=== PATIENT | female | born 1945 | race Caucasian/White ===

== ENCOUNTER 2019-07-25 12:15 | Inpatient (IN) | payer MEDICARE, OTHER ==
[~2019-07-25] VITALS: Ht 157.5 cm; Wt 109.8 kg
[2019-08-12] MEDS ORDERED: TRIAMTERENE-HC1 EAC3 PO (14:32)
[2019-08-12] MEDS ORDERED: TOPROL XL100 MG PO (14:33)
[2019-08-12] MEDS ORDERED: WELLBUTRIN SR150 MG PO (14:33)
[2019-08-12] MEDS ORDERED: ALEVE220 MG PO (14:34)
[2019-08-12] MEDS ORDERED: PRESERVISION PO (14:35)
[2019-08-13 11:43] LABS: BASOPHILS 0.4 % (0-2); EOSINOPHILS 2.4 % (0-7); HEMATOCRIT 47.8 % (36.0-48.0); HEMOGLOBIN 15.6 g/dL (12-16); IMMATURE GRANULOCYTES 0.3 % (0-5); LYMPHOCYTES 33.2 % (15-50); MCH 29.9 pg (26.0-34.0); MCHC 32.6 g/dL (31.0-37.0); MCV 91.6 fL (80.0-100.0); MEAN PLATELET VOLUME 10.5 fL (7.4-10.4); MONOCYTES 6.6 % (2-11); NEUTROPHILS 57.1 % (40-80); PLATELET COUNT 321 10x3/uL (130-400); RBC 5.22 10x6/uL (4.00-5.40); WBC 7.9 10x3/uL (4.8-10.8)
[2019-08-13 11:52] LABS: ANION GAP 11.3 mmol/L (8-16); APTT 31.4 SECONDS (22.8-39.4); CALCIUM 11.1 mg/dL (8.5-10.1); CARBON DIOXIDE 30.4 mmol/L (21.0-32.0); INR 0.93 (0.85-1.17); POTASSIUM - SERUM 3.7 mmol/L (3.5-5.1); PROTIME 12.4 SECONDS (11.6-15.0)
[2019-08-13 12:16] LABS: BACTERIA FEW /hpf (NEGATIVE); BILIRUBIN NEGATIVE (NEGATIVE); EPITHELIAL CELLS 0-5 /hpf (0-5); GLUCOSE NEGATIVE (NEGATIVE); KETONE NEGATIVE (NEGATIVE); NITRITE NEGATIVE (NEGATIVE); RED CELLS - URINE RARE /hpf (0-5); SPECIFIC GRAVITY 1.015 (1.005-1.020)
--- NOTE | 2019-08-13 14:22 | NUR ---
1415-UA RESULTS CALLED TO [facility] WITH DR FUNG.
[2019-08-19] VITALS (10 sets, daily range): BP systolic 116–165; BP diastolic 52–99; BMI 44.4
[2019-08-19] MEDS ORDERED: CIPRO500 MG PO (05:56)
--- NOTE | 2019-08-19 10:35 | NUR ---
RECEIVED TO ROOM 1208 VIA BED FROM PACU. IN ROOM. A/O X3. SKIN INTACT WTIHOUT REDNESS EXCEPT INCISION TO RIGHT HIP WHICH HAS A DRY INTACT DRESSING IN PLACE. C/O PAIN TO RIGHT HIP
--- NOTE | 2019-08-19 10:42 | OP ---
PATIENT NAME: ISABELLE STEPHENS MEDICAL RECORD: [id number] :47 LOCATION:D. D.1208 ADMISSION DATE:08/19/19 SURGEON: TOMMY FUNG DO DATE OF OPERATION: 08/19/2019 PROCEDURE PERFORMED: Right total hip arthroplasty. PREOPERATIVE DIAGNOSIS: Right hip osteoarthritis. POSTOPERATIVE DIAGNOSIS: Right hip osteoarthritis. INDICATIONS: Ms. Stephens is a 74-year-old female, who has had right hip pain for quite some time. She is tired of dealing with the pain and affecting her activities of daily living. She has tried all manner of nonoperative treatment to no avail. She wants something done surgically, and she was aware of the risks of the procedure including infection, bleeding, damage to nerves and vessels, failure of implant, fracture, blood clots, and even . She is aware she is a higher risk due to her BMI and she is willing to take that risk and sign the consent. SURGEON: Tommy Fung DO DESCRIPTION OF PROCEDURE: The patient was taken to the operative suite. I was assisted by Maximino Peters, certified medication technician. He assisted with retraction and closing. Once she was taken to the operative suite and laid in supine position, given a general anesthetic and intubated. She was given 2 grams of Ancef and 80 mg of gentamicin and a gram of TXA prior to starting. She was then positioned on the [place] table. The right hip was then prepped and draped in sterile fashion and then I reprepped before putting the final drape on with chlorhexidine. Then, a timeout was performed. Everyone was in agreement with the correct side, site, procedure, and the patient, and antibiotics were verified. I then made an incision over the tensor fascia marcelo muscle and careful dissection was made down to the muscle and the fascia was taken anteriorly and the muscle belly posteriorly. The rectus interval was then opened and the rectus was taken medially and the tensor fascia marcelo laterally. Once I was opened up, the ascending branch of the lateral femoral circumflex artery was encountered, tied off and coagulated with the Aquamantys. I then went down to the capsule. The capsule was opened up and the Hohmanns were placed inside the capsule. The neck was then cut and the neck and head were removed. I then removed the labrum and did releases on the ischiofemoral ligament as well as the posterior capsule as she was very tight. I then began reaming, reamed up to 50 cup. The 50 cup was then impacted in very good position. The liner was then put in. The femur was then exposed, and a cookie cutter and canal finder were used and then broached up to an 11. The 11 was sized and reduced with a -6 neck. This fit very well. Once we dislocated that the 11 stem was a little loose, so we put a 12 broach down and put a 12 stem down. This fit very well. The -6 neck was then put on with the high offset. This was reduced and confirmed to be in good position on x-ray and equal lengths to the left side. No fracture was seen in the femur. We then tested the internal and external rotation and it rotated very well with most of motion from the small ball, not the big ball. We then irrigated the site with 10% povidone-iodine with 500 mL of normal saline solution, set for 3 minutes. This was irrigated out with more than a liter of normal saline. Then put in Dinah powder as well as vancomycin and tobramycin powder and then closed the tensor fascia marcelo fascia with #1 Vicryl, first in [id number] and then a running OPERATIVE REPORT [id number] ISABELLE STEPHENS locking stitch. The skin was then closed by Maximino Peters, certified surgical captain's assistant. He closed with 2-0 Vicryl in an inverted interrupted fashion, 4-0 Monocryl ran on the skin and then put a Prevena plus wound incisional VAC on it due to her skin fold being right at the incision site protecting that repair. Plan to be on it for 2 weeks. She was then awakened and taken to recovery in stable condition. Blood loss was approximately 200 mL. COMPLICATIONS: None. TRANSINT:[id number] Voice Confirmation ID: [id number] DOCUMENT ID: [id number] TOMMY FUNG DO at 1042 CC: [id number] DICTATION DATE: 08/19/19920 RECRUITMENT ASSISTANT: 08/19/19 0950 ADM IN [facility] [address] [place] [address]
--- NOTE | 2019-08-19 10:50 | NUR ---
C/O INTENSE PAIN TO RIGHT HIP. REQUESTED AND GIVEN ON HYDROCODONE PO FOR LEVEL 8. WILL MONITOR
[2019-08-19 11:15] LABS: ALBUMIN 3.4 g/dL (3.4-5.0); ANION GAP 11.7 mmol/L (8-16); BILIRUBIN - TOTAL 0.52 mg/dL (0.2-1.3); CALCIUM 10.1 mg/dL (8.5-10.1); CARBON DIOXIDE 26.7 mmol/L (21.0-32.0); CREATININE - SERUM 1.1 mg/dL (0.6-1.3); POTASSIUM - SERUM 3.4 mmol/L (3.5-5.1); PROTEIN - SERUM 6.4 g/dL (6.4-8.2)
[2019-08-19 11:36] LABS: BASOPHILS 0.2 % (0-2); EOSINOPHILS 0.3 % (0-7); HEMOGLOBIN 13.5 g/dL (12-16); IMMATURE GRANULOCYTES 0.3 % (0-5); LYMPHOCYTES 8.2 % (15-50); MCH 29.9 pg (26.0-34.0); MCHC 32.1 g/dL (31.0-37.0); MCV 92.9 fL (80.0-100.0); MEAN PLATELET VOLUME 10.4 fL (7.4-10.4); MONOCYTES 2.7 % (2-11); NEUTROPHILS 88.3 % (40-80); PLATELET COUNT 289 10x3/uL (130-400); RBC 4.52 10x6/uL (4.00-5.40); RDW 12.9 % (11.5-14.5); WBC 17.6 10x3/uL (4.8-10.8)
--- NOTE | 2019-08-19 19:20 | NUR ---
ATE MOST OF DINNER TRAY. ASSISTED UP TO BSC WITH 2 PERSON MIN ASSIST. UNABLE TO VOID AT THIS TIME. REPOSITIONED IN BED FOR COMFORT. DENIES NEEDS.
--- NOTE | 2019-08-19 19:30 | NUR ---
LYING IN BED. UNABLE TO VOID AFTER GETTING UP TO BSC. WILL CONT TO MONITOR. DENIES PAIN. RESP EVEN AND NONLABORED. ALERT AND ORIENTED X4. DAVID HOSE AND SCD IN USE BILAT. WOUND VAC NOTED TO RT HIP WITH SCANT AMOUNT OF BLOODY FLUID NOTED. 1/2 NS @ 50 MLHR INFUSING IN LT HAND. AMBAR ALARM ON FOR PT SAFETY. SR ELEVATED X2. PEDAL PULSES STRONG BILAT. CL IN REACH. NO DISTRESS.
--- NOTE | 2019-08-19 21:00 | NUR ---
LYING IN BED. DENIES PAIN. AT BEDSIDE. CL IN REACH.
--- NOTE | 2019-08-20 00:06 | NUR ---
UNABLE TO VOID AFTER ATTEMPT X2 ON BSC. STATES SHE FEELS LIKE IT IS "RIGHT THERE AND WONT COME OUT". I/O CATH PERFORMED WITH IMMEDIATE RETURN OF CLEAR YELLOW URINE. SPECIMEN COLLECTED AND TAKEN TO LAB. PT BRUCE WELL. 600 ML OUT.
[2019-08-20 00:31] VITALS: BP 134/55
--- NOTE | 2019-08-20 03:03 | NUR ---
LYING IN BED WITH EYES CLOSED. RESP EVEN AND NONLABORED. NO DISTRESS. AMBAR ALARM ON. CL IN REACH. AT BEDSIDE.
[2019-08-20 04:26] VITALS: BP 116/50
--- NOTE | 2019-08-20 05:42 | NUR ---
LYING IN BED DRINKING COFFEE WITH SPOUSE AT BEDSIDE. DENIES PAIN. DENIES NEED TO VOID OR DISTENTION. CL IN REACH. NO DISTRESS.
[2019-08-20 06:12] LABS: BASOPHILS 0.1 % (0-2); EOSINOPHILS 0.1 % (0-7); HEMATOCRIT 38.6 % (36.0-48.0); HEMOGLOBIN 12.2 g/dL (12-16); IMMATURE GRANULOCYTES 0.2 % (0-5); LYMPHOCYTES 16.9 % (15-50); MCHC 31.6 g/dL (31.0-37.0); MCV 91.7 fL (80.0-100.0); MEAN PLATELET VOLUME 10.6 fL (7.4-10.4); MONOCYTES 12.9 % (2-11); NEUTROPHILS 69.8 % (40-80); PLATELET COUNT 289 10x3/uL (130-400); RBC 4.21 10x6/uL (4.00-5.40)
[2019-08-20 06:36] LABS: ANION GAP 10.9 mmol/L (8-16); BILIRUBIN - TOTAL 0.68 mg/dL (0.2-1.3); CALCIUM 9.6 mg/dL (8.5-10.1); CARBON DIOXIDE 27.8 mmol/L (21.0-32.0); POTASSIUM - SERUM 3.7 mmol/L (3.5-5.1); PROTEIN - SERUM 5.8 g/dL (6.4-8.2)
[2019-08-20 09:13] LABS: BILIRUBIN NEGATIVE (NEGATIVE); GLUCOSE 50 mg/dL (NEGATIVE); KETONE SMALL mg/dL (NEGATIVE); NITRITE NEGATIVE (NEGATIVE); SPECIFIC GRAVITY 1.015 (1.005-1.020); UROBILINOGEN NORMAL (NORMAL)
[2019-08-20 09:22] VITALS: Ht 157.5 cm; Wt 109.8 kg
[2019-08-20 09:31] VITALS: BP 114/51
--- NOTE | 2019-08-20 09:41 | NUR ---
PT ALERT X 4. BREATH SOUNDS DIMINISHED TO LOWER LOBES, ENCOURAGED TO COUGH AND USE INCENTIVE SPIROMETER. IV TO LEFT HAND, PATENT DRESSING CDI. WOUND VAC TO RIGHT HIP. SCD'S IN USE. PT REPORTING PAIN OF 7/10, MEDICATED PER ORDERS, WILL MONITOR. UP WITH PHYSICAL THERAPY. BED LOW, CALL LIGHT IN REACH. NO OTHER NEEDS AT THIS TIME.
--- NOTE | 2019-08-20 19:24 | NUR ---
PATIENT RESTING IN BED WITH GUEST AT BEDSIDE. ASSISTED PATIENT TO BSC PER HER REQUEST. PATIENT DENIES OTHER NEEDS AT THIS TIME. DAVID HOSE, SCD'S, AND NON-SLIP SOCKS PLACED ON PATIENT. BED IN LOWEST POSITION AND CALL LIGHT WITHIN REACH. ENCOURAGED THE PATIENT TO CALL IF SHE HAS NEEDS. WILL CONTINUE TO MONITOR.
--- NOTE | 2019-08-20 19:30 | NUR ---
PATIENT REFUSED BATH TONIGHT
[2019-08-20 20:25] VITALS: BP 118/50
--- NOTE | 2019-08-20 22:33 | MORECARE ---
CASE MANAGEMENT DISCHARGE SUMMARY PATIENT: ISABELLE DOVER UNIT: [id number] ADM DATE: 08/19/19 AGE: 74 : 46 SEX: F ROOM/BED: D.1208 AUTHOR: SANDRITA MONROE PHYSICIAN: REFERRING PHYSICIAN: MARLENY FUNG DO DATE OF SERVICE: 08/20/19 Discharge Plan Patient Name: ISABELLE DOVER Facility: [facility]:[place] : 1945 Planned Disposition: Home Anticipated Discharge Date: Discharge Date: Expected LOS: Initial Reviewer: [email or web address] Initial Review Date: 08/20/2019 Generated: 08/20/19 11:33 pm Patient Name: ISABELLE DOVER Page 24292 at 6313 All edits/amendments must be made on the electronic document DICTATION DATE: 08/20/192232 FIG BAR MACHINE OPERATOR: BARBARA 08/20/192232 RPT#: [id number] DC DATE: STATUS: ADM IN [facility] [address] [place] [address] END OF REPORT
--- NOTE | 2019-08-20 22:40 | MORECARE ---
CASE MANAGEMENT DISCHARGE SUMMARY PATIENT: ISABELLE STEPHENS UNIT: [id number] ADM DATE: 08/19/19 AGE: 74 : 46 SEX: F ROOM/BED: D.1208 AUTHOR: SANDRITA MONROE PHYSICIAN: REFERRING PHYSICIAN: MARLENY FUNG DO DATE OF SERVICE: 08/20/19 Discharge Plan Patient Name: ISABELLE STEPHENS [facility] : 1945 Planned Disposition: Home Anticipated Discharge Date: Discharge Date: Expected LOS: Initial Reviewer: [email or web address] Initial Review Date: 08/20/2019 Generated: 08/20/19 11:40 pm DCPIA - Discharge Planning Initial Assessment Updated by [email or web address]: Laura Person on 08/20/19 10:34 pm * Is the patient Alert and Oriented? Yes * How many steps to enter\exit or inside your home? * PCP Te[facility] Jr * [facility] * Preadmission Environment Home with Family * ADLs Independent * Equipment None * List name and contact numbers for known caregivers / representatives who currently or will assist patient after discharge: Preston Stephens -[phone] * Verbal permission to speak to the caregivers and representatives has been obtained from the patient. Yes * Community resources currently utilized None * Additional services required to return to the preadmission environment? No * Can the patient safely return to the preadmission environment? Yes * Has this patient been hospitalized within the prior 30 days at any hospital? No Last DP export: 08/20/19 9:33 p Patient Name: ISABELLE STEPHENS Page 86501 at 2240 All edits/amendments must be made on the electronic document DICTATION DATE: 08/20/192239 FREELANCE WEB DESIGNER: BARBARA 08/20/192239 RPT#: [id number] DC DATE: STATUS: ADM IN [facility] [address] [place] [address] END OF REPORT
--- NOTE | 2019-08-20 22:47 | MORECARE ---
CASE MANAGEMENT DISCHARGE SUMMARY PATIENT: ISABELLE STEPHENS UNIT: [id number] ADM DATE: 08/19/19 AGE: 74 : 46 SEX: F ROOM/BED: D.1208 AUTHOR: SANDRITA MONROE PHYSICIAN: REFERRING PHYSICIAN: MARLENY FUNG DO DATE OF SERVICE: 08/20/19 Discharge Plan Patient Name: ISABELLE STEPHENS Facility: [facility]:[place] : 1945 Planned Disposition: Home Anticipated Discharge Date: Discharge Date: Expected LOS: Initial Reviewer: [email or web address] Initial Review Date: 08/20/2019 Generated: 08/20/19 11:46 pm Comments DCP- Discharge Planning Updated by [email or web address]: Laura Person on 08/20/19 9:[address] Patient Name: ISABELLE STEPHENS Admission Status: Elective Accout number: [id number] Admission Date: 08-19-2019 : 1945 Admission Diagnosis: Attending: MARLENY FUNG Current LOS: 1 Anticipated DC Date: Planned Disposition: Home Primary Insurance: MEDICARE A & B Discharge Planning Comments: CM met with patient to complete initial dc planning assessment. CM educated patient on the CM role and verbal consent given by patient to complete assessment. Patient lives at home with her where she is independent with her care. At discharge patient plans to return home and feels this is a safe discharge. CM discussed availability of home health, rehab services, and medical equipment. Patient states that [facility] is suppose to bring her a walker but she need a BSC that is wide. Patient also states that she will need d/t having a wound vac. RANJAN signed for [facility] [phone] fax [phone]. CM contacted [facility] and [facility] stated they would accept patient when discharged just fax referral upon discharge. [facility] and will fax order. Patient denied known discharge needs at this time. CM will continue to follow and will assist as needed with dc plans/needs. Clothing And Textiles Teacher: Laura Person DCPIA - Discharge Planning Initial Assessment Updated by [email or web address]: Laura Person on 08/20/19 10:34 pm * Is the patient Alert and Oriented? Yes * How many steps to enter\exit or inside your home? * PCP [facility] Jr * [facility] * Preadmission Environment Home with Family * ADLs Independent * Equipment None * List name and contact numbers for known caregivers / representatives who currently or will assist patient after discharge: Preston Stephens -[phone] * Verbal permission to speak to the caregivers and representatives has been obtained from the patient. Yes * Community resources currently utilized None * Additional services required to return to the preadmission environment? No * Can the patient safely return to the preadmission environment? Yes * Has this patient been hospitalized within the prior 30 days at any hospital? No Last DP export: 08/20/19 9:40 p Patient Name: ISABELLE STEPHENS Page 25161 at 2247 All edits/amendments must be made on the electronic document DICTATION DATE: 08/20/192245 GEAR CUTTER: BARBARA 08/20/192245 RPT#: [id number] DC DATE: STATUS: ADM IN [facility] [address] [place] [address] END OF REPORT
--- NOTE | 2019-08-20 22:59 | MORECARE ---
CASE MANAGEMENT DISCHARGE SUMMARY PATIENT: ISABELLE STEPHENS UNIT: [id number] ADM DATE: 08/19/19 AGE: 74 : 46 SEX: F ROOM/BED: D.1208 AUTHOR: SANDRITA MONROE PHYSICIAN: REFERRING PHYSICIAN: MARLENY FUNG DO DATE OF SERVICE: 08/20/19 Discharge Plan Patient Name: ISABELLE STEPHENS Facility: [facility]:[place] : 1945 Planned Disposition: Home Anticipated Discharge Date: Discharge Date: Expected LOS: Initial Reviewer: [email or web address] Initial Review Date: 08/20/2019 Generated: 08/20/19 11:59 pm Comments DCP- Discharge Planning Updated by [email or web address]: Laura Person on 08/20/19 9:[address] Patient Name: ISABELLE STEPHENS Admission Status: Elective Accout number: [id number] Admission Date: 08-19-2019 : 1945 Admission Diagnosis: Attending: MARLENY FUNG Current LOS: 1 Anticipated DC Date: Planned Disposition: Home Primary Insurance: MEDICARE A & B Discharge Planning Comments: CM met with patient to complete initial dc planning assessment. CM educated patient on the CM role and verbal consent given by patient to complete assessment. Patient lives at home with her where she is independent with her care. At discharge patient plans to return home and feels this is a safe discharge. CM discussed availability of home health, rehab services, and medical equipment. Patient states that [facility] is suppose to bring her a walker but she need a BSC that is wide. Patient also states that she will need d/t having a wound vac. RANJAN signed for [facility] [phone] fax [phone]. CM contacted [facility] and Carlos stated they would accept patient when discharged just fax referral upon discharge. CM [facility] and will fax order. Patient denied known discharge needs at this time. CM will continue to follow and will assist as needed with dc plans/needs. C Software Engineer: Laura Person DCPIA - Discharge Planning Initial Assessment Updated by [email or web address]: Laura Person on 08/20/19 10:34 pm * Is the patient Alert and Oriented? Yes * How many steps to enter\exit or inside your home? * PCP [facility] Jr * [facility] * Preadmission Environment Home with Family * ADLs Independent * Equipment None * List name and contact numbers for known caregivers / representatives who currently or will assist patient after discharge: Preston Stephens -[phone] * Verbal permission to speak to the caregivers and representatives has been obtained from the patient. Yes * Community resources currently utilized None * Additional services required to return to the preadmission environment? No * Can the patient safely return to the preadmission environment? Yes * Has this patient been hospitalized within the prior 30 days at any hospital? No External Providers [facility] Next Contact Date: Service Request Date: Service Type: Resolution: Reviewer: Comments: Last DP export: 08/20/19 9:47 p Patient Name: ISABELLE STEPHENS Page 49347 at 9557 All edits/amendments must be made on the electronic document DICTATION DATE: 08/20/192258 PATTERN MAKER PROGRAMER: BARBARA 08/20/192258 RPT#: [id number] DC DATE: STATUS: ADM IN [facility] [address] [place] [address] END OF REPORT
[2019-08-21] VITALS (7 sets, daily range): BP systolic 121–156; BP diastolic 52–71
[2019-08-21 05:28] LABS: BASOPHILS 0.2 % (0-2); EOSINOPHILS 0.7 % (0-7); HEMATOCRIT 39.4 % (36.0-48.0); HEMOGLOBIN 12.6 g/dL (12-16); IMMATURE GRANULOCYTES 0.2 % (0-5); LYMPHOCYTES 12.4 % (15-50); MCH 29.4 pg (26.0-34.0); MCV 91.8 fL (80.0-100.0); MEAN PLATELET VOLUME 10.4 fL (7.4-10.4); MONOCYTES 10.7 % (2-11); NEUTROPHILS 75.8 % (40-80); PLATELET COUNT 301 10x3/uL (130-400); RBC 4.29 10x6/uL (4.00-5.40); RDW 13.3 % (11.5-14.5)
[2019-08-21 05:46] LABS: ALBUMIN 3.2 g/dL (3.4-5.0); ANION GAP 12.5 mmol/L (8-16); BILIRUBIN - TOTAL 0.64 mg/dL (0.2-1.3); CALCIUM 10.2 mg/dL (8.5-10.1); CARBON DIOXIDE 28.1 mmol/L (21.0-32.0); POTASSIUM - SERUM 3.6 mmol/L (3.5-5.1); PROTEIN - SERUM 6.4 g/dL (6.4-8.2)
--- NOTE | 2019-08-21 07:06 | NUR ---
PT IS RESTING IN BEDSIDE CHAIR. RESPIRATIONS ARE EVEN AND UNLABORED. PT IS AAO X 4. SCDS ARE ON BLE. WOUND VAC NOTED TO RIGHT HIP. DRESSING INTACT. PT DENIES PRESENCE OF NUMBNESS/TINGLING TO BUE AND BLE. BILATERAL PEDAL PULSES PALP AND CAP REFILL IS < 3. IS AT BEDSIDE. PT DENIES PRESENCE OF PAIN TO HIP BUT REPORTS ABDOMINAL DISCOMFORT AND STATES "I NEED TO HAVE A BM". BS HYPOACTIVE X 4. PT DENIES PRESENCE OF N/V AND STATES THAT SHE HAS PASSED GAS "BUT NOT A LOT". INCENTIVE SPIROMETER AT BEDSIDE. PT EDUCATED ON USE AND IMPORTANCE OF USE FOR INCENTIVE SPIROMETER. PT VERBALIZES UNDERSTANDING. BED IS IN THE LOWEST POSITION. CALL LIGHT AND BEDSIDE TABLE ARE WITHIN REACH. SIDE RAILS X 2. WALKER IN REACH. PT AND PT SPOUSE DENY FURTHER NEEDS. WILL CONT TO MONITOR.
--- NOTE | 2019-08-21 08:52 | NUR ---
PT REPORTS LARGE BM AND STATES THAT SHE FEELS "BETTER".
--- NOTE | 2019-08-21 16:46 | NUR ---
PT CALLS NURSE TO ROOM AND STAES "I FEEL LIKE I MIGHT HAVE A LITTLE FEVER". PT TEMPORAL TEMPERATURE IS 99.6. BLANKETS REMOVED AND PT ENCOURAGED TO USE INCENTIVE SPIROMETER. PT DENIES PRESENCE OF PAIN/N/V/DYSPNEA/SOB AT THIS TIME. WOUND VAC TO RIGHT HIP INTACT AND ON AND WORKING. IS AT BEDSIDE. BED IS IN THE LOWEST POSITION. CALL LIGHT AND BEDSIDE TABLE ARE WITHIN REACH. SIDE RAILS X 2. PT DENIES FURTHER NEEDS. WILL CONT TO MONITOR.
--- NOTE | 2019-08-21 17:39 | MORECARE ---
CASE MANAGEMENT DISCHARGE SUMMARY PATIENT: ISABELLE STEPHENS UNIT: [id number] ADM DATE: 08/19/19 AGE: 74 : 46 SEX: F ROOM/BED: D.1208 AUTHOR: SANDRITA MONROE PHYSICIAN: REFERRING PHYSICIAN: MARLENY FUNG DO DATE OF SERVICE: 08/21/19 Discharge Plan Patient Name: ISABELLE STEPHENS Facility: [facility]:[place] : 1945 Planned Disposition: Home Anticipated Discharge Date: Discharge Date: Expected LOS: Initial Reviewer: [email or web address] Initial Review Date: 08/20/2019 Generated: 08/21/19 6:39 pm Comments DCP- Discharge Planning Updated by [email or web address]: Laura Person on 08/20/19 9:[address] Patient Name: ISABELLE STEPHENS Admission Status: Elective Accout number: [id number] Admission Date: 08-19-2019 : 1945 Admission Diagnosis: Attending: MARLENY FUNG Current LOS: 1 Anticipated DC Date: Planned Disposition: Home Primary Insurance: MEDICARE A & B Discharge Planning Comments: CM met with patient to complete initial dc planning assessment. CM educated patient on the CM role and verbal consent given by patient to complete assessment. Patient lives at home with her where she is independent with her care. At discharge patient plans to return home and feels this is a safe discharge. CM discussed availability of home health, rehab services, and medical equipment. Patient states that [facility] is suppose to bring her a walker but she need a BSC that is wide. Patient also states that she will need d/t having a wound vac. RANJAN signed for [facility] [phone] fax [phone]. CM contacted [facility] and Carlos stated they would accept patient when discharged just fax referral upon discharge. [facility] and will fax order. Patient denied known discharge needs at this time. CM will continue to follow and will assist as needed with dc plans/needs. Batteryman: Laura Person DCPIA - Discharge Planning Initial Assessment Updated by [email or web address]: Laura Person on 08/20/19 10:34 pm * Is the patient Alert and Oriented? Yes * How many steps to enter\exit or inside your home? * PCP [facility] Jr * [facility] * Preadmission Environment Home with Family * ADLs Independent * Equipment None * List name and contact numbers for known caregivers / representatives who currently or will assist patient after discharge: Preston Stephens -[phone] * Verbal permission to speak to the caregivers and representatives has been obtained from the patient. Yes * Community resources currently utilized None * Additional services required to return to the preadmission environment? No * Can the patient safely return to the preadmission environment? Yes * Has this patient been hospitalized within the prior 30 days at any hospital? No External Providers External Provider: OTHER-OTHER Next Contact Date: Service Request Date: Service Type: Resolution: Reviewer: Comments: Last DP export: 08/20/19 9:59 p Patient Name: ISABELLE STEPHENS Page 72973 at 1739 All edits/amendments must be made on the electronic document DICTATION DATE: 08/21/191738 ORDER PULLER: BARBARA 08/21/191738 RPT#: [id number] DC DATE: STATUS: ADM IN [facility] [address] [place] [address] END OF REPORT
--- NOTE | 2019-08-21 17:47 | MORECARE ---
CASE MANAGEMENT DISCHARGE SUMMARY PATIENT: ISABELLE STEPHENS UNIT: [id number] ADM DATE: 08/19/19 AGE: 74 : 46 SEX: F ROOM/BED: D.1208 AUTHOR: FER,DOC PHYSICIAN: REFERRING PHYSICIAN: MARLENY FUNG DO DATE OF SERVICE: 08/21/19 Discharge Plan Patient Name: ISABELLE STEPHENS Facility: [facility]:[place] : 1945 Planned Disposition: Home Anticipated Discharge Date: Discharge Date: Expected LOS: Initial Reviewer: [email or web address] Initial Review Date: 08/20/2019 Generated: 08/21/19 6:47 pm Comments DCP- Discharge Planning Updated by [email or web address]: Laura Person on 08/21/19 4:[address] CM faxed records to [facility]. CM has no current order for home health or plan for wound vac. CM will continue to follow and assist as needed with discharge planning / needs. DCP- Discharge Planning Updated by [email or web address]: Laura Person on 08/20/19 9:[address] Patient Name: ISABELLE STEPHENS Admission Status: Elective Accout number: [id number] Admission Date: 08-19-2019 : 1945 Admission Diagnosis: Attending: MARLENY FUNG Current LOS: 1 Anticipated DC Date: Planned Disposition: Home Primary Insurance: MEDICARE A & B Discharge Planning Comments: CM met with patient to complete initial dc planning assessment. CM educated patient on the CM role and verbal consent given by patient to complete assessment. Patient lives at home with her where she is independent with her care. At discharge patient plans to return home and feels this is a safe discharge. CM discussed availability of home health, rehab services, and medical equipment. Patient states that [facility] is suppose to bring her a walker but she need a BSC that is wide. Patient also states that she will need HH d/t having a wound vac. RANJAN signed for [facility] [phone] fax [phone]. CM contacted [facility] and Carlos stated they would accept patient when discharged just fax referral upon discharge. CM contacted [facility] regarding BSC and will fax order. Patient denied known discharge needs at this time. CM will continue to follow and will assist as needed with dc plans/needs. Shake Backboard Notcher: Laura Person DCPIA - Discharge Planning Initial Assessment Updated by [id number]: Laura Person on 08/20/19 10:34 pm * Is the patient Alert and Oriented? Yes * How many steps to enter\exit or inside your home? * PCP Te[facility] Jr * [facility] * Preadmission Environment Home with Family * ADLs Independent * Equipment None * List name and contact numbers for known caregivers / representatives who currently or will assist patient after discharge: Preston Stephens -[phone] * Verbal permission to speak to the caregivers and representatives has been obtained from the patient. Yes * Community resources currently utilized None * Additional services required to return to the preadmission environment? No * Can the patient safely return to the preadmission environment? Yes * Has this patient been hospitalized within the prior 30 days at any hospital? No Last DP export: 08/21/19 4:39 p Patient Name: ISABELLE STEPHENS Page 95284 at 1747 All edits/amendments must be made on the electronic document DICTATION DATE: 08/21/191746 SPRINKLER HELPER: BARBARA 08/21/191746 RPT#: [id number] DC DATE: STATUS: ADM IN [facility] [address] [place] [address] END OF REPORT
--- NOTE | 2019-08-21 19:15 | NUR ---
PT SITTING UP IN BED WITHOUT DISTRESS, AOX4. AT BEDSIDE. IV LEFT HAND SL. DAVID HOSE AND SCDS IN PLACE. DRESSING TO RIGHT HIP CDI. DENIES PAIN OR NEEDS AT THIS TIME. STATES SHE IS FEELING MUCH BETTER THAN EARLIER AND IS READY TO GO HOME IN AM. CL IN REACH, WILL CTM
[2019-08-22 04:00] VITALS: BP 152/63
--- NOTE | 2019-08-22 04:15 | NUR ---
PT STATES SHE HAS NOT BEEN TAKING HER HOME MEDICATION OF METOPROLOL WHILE HERE AND SHE BELIEVES THAT IS WHY HER BP AND HR ARE INCREASED. WILL PASS ON TO NEXT NURSE IN REPORT
[2019-08-22 05:26] LABS: BASOPHILS 0.1 % (0-2); EOSINOPHILS 1.2 % (0-7); HEMATOCRIT 38.6 % (36.0-48.0); HEMOGLOBIN 12.1 g/dL (12-16); IMMATURE GRANULOCYTES 0.2 % (0-5); LYMPHOCYTES 18.5 % (15-50); MCH 29.1 pg (26.0-34.0); MCHC 31.3 g/dL (31.0-37.0); MCV 92.8 fL (80.0-100.0); MEAN PLATELET VOLUME 10.4 fL (7.4-10.4); MONOCYTES 10.3 % (2-11); NEUTROPHILS 69.7 % (40-80); PLATELET COUNT 286 10x3/uL (130-400); RBC 4.16 10x6/uL (4.00-5.40); RDW 13.2 % (11.5-14.5); WBC 13.7 10x3/uL (4.8-10.8)
[2019-08-22 05:42] LABS: ALBUMIN 2.8 g/dL (3.4-5.0); ANION GAP 8.9 mmol/L (8-16); BILIRUBIN - TOTAL 0.86 mg/dL (0.2-1.3); CARBON DIOXIDE 31.1 mmol/L (21.0-32.0); CREATININE - SERUM 0.9 mg/dL (0.6-1.3); PROTEIN - SERUM 6.4 g/dL (6.4-8.2)
[2019-08-22 07:25] VITALS: BP 136/66
--- NOTE | 2019-08-22 07:46 | NUR ---
AWAKE AND ALERT. ORIENTED X3. NO C/O AT THIS TIME. AT BEDSIDE. LUNGS ARE CLEAR BILATERALLY, NO COUGH NOTED. REPORTS USED IS INSTRUCTED. SKIN IS INTACT WITHOUT REDNESS EXCEPT INCISION TO RIGHT HIP WHICH HAS A PROVENA WOUND VAC IN PLACE. SL TO LEFT HAND IS PATENT WITHOUT REDNESS AT INSERTION SITE. DENIES NEEDS. ATE ALL OF BREAKFAST.
--- NOTE | 2019-08-22 08:45 | NUR ---
REQUESTED AND GIVEN ONE 5MG HYDROCODONE PO FOR C/O RIGHT HIP PAIN LEVEL 5. WILL MONITOR. ATE ALL OF BREAKFAST AND TOOK AM MEDS WITHOUT DIFFICULTY.
[2019-08-22] MEDS ORDERED: CIPRO500 MG PO (08:56)
[2019-08-22] MEDS ORDERED: HYDROCODON-ACE1 EA10 PO (08:57)
[2019-08-22] MEDS ORDERED: ELIQUIS2.5 MG PO (08:58)
[2019-08-22] MEDS ORDERED: KLOR-CON M2020 MEQ PO (09:02)
--- NOTE | 2019-08-22 11:21 | MORECARE ---
CASE MANAGEMENT DISCHARGE SUMMARY PATIENT: ISABELLE STEPHENS UNIT: [id number] ADM DATE: 08/19/19 AGE: 74 : 47 SEX: F ROOM/BED: D.1208 AUTHOR: FER,DOC PHYSICIAN: REFERRING PHYSICIAN: MARLENY FUNG DO DATE OF SERVICE: 08/22/19 Discharge Plan Patient Name: ISABELLE STEPHENS Facility: [facility]:[place] : 1945 Planned Disposition: Home Anticipated Discharge Date: Discharge Date: Expected LOS: Initial Reviewer: [email or web address] Initial Review Date: 08/20/2019 Generated: 08/22/19 12:21 pm Comments DCP- Discharge Planning Updated by [email or web address]: Angie Reeves on 08/22/19 10:[address] Received discharge orders. CM spoke with patient concerning need for either home health or outpatient PT. Patient states she has 7 steps to get into her home and may feel more safe to have PT at home for a little while. States she does not feel the need to have nursing. [facility] and order for PT faxed to her along with the DC summary. Home today with [facility] for PT. DCP- Discharge Planning Updated by [email or web address]: Laura Person on 08/21/19 4:[address] CM faxed records to [facility]. CM has no current order for home health or plan for wound vac. CM will continue to follow and assist as needed with discharge planning / needs. DCP- Discharge Planning Updated by [id number]: Laura Person on 08/20/19 9:[address] Patient Name: ISABELLE STEPHENS Admission Status: Elective Accout number: [id number] Admission Date: 08-19-2019 : 1945 Admission Diagnosis: Attending: MARLENY FUNG Current LOS: 1 Anticipated DC Date: Planned Disposition: Home Primary Insurance: MEDICARE A & B Discharge Planning Comments: CM met with patient to complete initial dc planning assessment. CM educated patient on the CM role and verbal consent given by patient to complete assessment. Patient lives at home with her where she is independent with her care. At discharge patient plans to return home and feels this is a safe discharge. CM discussed availability of home health, rehab services, and medical equipment. Patient states that [facility] is suppose to bring her a walker but she need a BSC that is wide. Patient also states that she will need HH d/t having a wound vac. RANJAN signed for [facility] [phone] fax [phone]. CM contacted [facility] and Carlos stated they would accept patient when discharged just fax referral upon discharge. CM contacted [facility] regarding BSC and will fax order. Patient denied known discharge needs at this time. CM will continue to follow and will assist as needed with dc plans/needs. Database Administration Manager: Laura Person DCPIA - Discharge Planning Initial Assessment Updated by [email or web address]: Laura Person on 08/20/19 10:34 pm * Is the patient Alert and Oriented? Yes * How many steps to enter\exit or inside your home? * PCP Teodoro York Jr * Pharmacy [facility] * Preadmission Environment Home with Family * ADLs Independent * Equipment None * List name and contact numbers for known caregivers / representatives who currently or will assist patient after discharge: Preston Stephens -[phone] * Verbal permission to speak to the caregivers and representatives has been obtained from the patient. Yes * Community resources currently utilized None * Additional services required to return to the preadmission environment? No * Can the patient safely return to the preadmission environment? Yes * Has this patient been hospitalized within the prior 30 days at any hospital? No Coverage Notice Reviewer: [id number] - Angie Reeves Notice Issued Date-Time: 08/22/2019 11:19 Notice Type: IM Discharge Notice Notice Delivered To: Patient Relationship to Patient: Self Citrus Picker Name: Delivery Method: HAND - Hand Delivered Rosemary Days: Prior Verbal Notification: Recipient Understood Notice: Yes Recipient Signature: Yes Med Rec Note Co-signed by Attending: Coverage Notice Comment: IMM explained, signed, given, copy placed in MR Last DP export: 08/21/19 4:47 p Patient Name: ISABELLE STEPHENS Page [phone] at 1121 All edits/amendments must be made on the electronic document DICTATION DATE: 08/22/19 112 SUPERVISOR FILM PROCESSING: BARBARA 08/22/19 1121 RPT#: [id number] DC DATE: STATUS: ADM IN [facility] [address] [place] [address] END OF REPORT
--- NOTE | 2019-08-22 11:28 | NUR ---
Applied new prevena plus dressing to surgical incision on right hip. Proper seal was achieved. -125mmhg low continuous setting. Incision is intact and without redness, edema, odor or drainage. Instructions provided to pt and her about home use of prevena pump and dressing changes. Both voiced their understanding.
--- NOTE | 2019-08-22 11:41 | NUR ---
DISCHARGED TO HOME WITH AMBULATORY. DISCHARGE IN STRUCTIONS GIVEN BOTH VERBALLY AND WRITTEN. ALL QUESTIONS ANSWERED. PATIENT AND VERBALIZED UNDERSTANDING OF SAME. SL TO LEFT HAND D/C WITH CATHETER INTACT. PUMP CHANGED TO PROVENA PUMP AND PATIENT INSTRUCTED IN HOW TO CHANGE IT OVER. ALL QUESTIONS ANSWERED. NEEDED PRESCRIPTIONS GIVEN TO PATIENT. ALL BELONGINGS WITH PATIENT.
--- NOTE | 2019-08-22 13:20 | MORECARE ---
CASE MANAGEMENT DISCHARGE SUMMARY PATIENT: ISABELLE STEPHENS UNIT: [id number] ADM DATE: 08/19/19 AGE: 74 : 47 SEX: F ROOM/BED: D.1208 AUTHOR: FER,SANDRITA PHYSICIAN: REFERRING PHYSICIAN: MARLENY FUNG DO DATE OF SERVICE: 08/22/19 Discharge Plan Patient Name: ISABELLE STEPHENS Facility: [facility]:[place] : 1945 Planned Disposition: Home Anticipated Discharge Date: Discharge Date: 08/22/2019 Expected LOS: 0 Initial Reviewer: [email or web address] Initial Review Date: 08/20/2019 Generated: 08/22/19 2:19 pm Comments DCP- Discharge Planning Updated by [email or web address]: Angie Reeves on 08/22/19 10:[address] Received discharge orders. CM spoke with patient concerning need for either home health or outpatient PT. Patient states she has 7 steps to get into her home and may feel more safe to have PT at home for a little while. States she does not feel the need to have nursing. I called Cristina at [facility] and informed she was discharging today and order for PT faxed to her along with the DC summary. Home today with [facility] for PT. DCP- Discharge Planning Updated by [email or web address]: Laura Person on 08/21/19 4:[address] CM faxed records to [facility]. CM has no current order for home health or plan for wound vac. CM will continue to follow and assist as needed with discharge planning / needs. DCP- Discharge Planning Updated by [email or web address]: Laura Person on 08/20/19 9:[address] Patient Name: ISABELLE STEPHENS Admission Status: Elective Accout number: [id number] Admission Date: 08-19-2019 : 1945 Admission Diagnosis: Attending: MARLENY FUNG Current LOS: 1 Anticipated DC Date: Planned Disposition: Home Primary Insurance: MEDICARE A & B Discharge Planning Comments: CM met with patient to complete initial dc planning assessment. CM educated patient on the CM role and verbal consent given by patient to complete assessment. Patient lives at home with her where she is independent with her care. At discharge patient plans to return home and feels this is a safe discharge. CM discussed availability of home health, rehab services, and medical equipment. Patient states that [facility] is suppose to bring her a walker but she need a BSC that is wide. Patient also states that she will need HH d/t having a wound vac. RANJAN signed for [facility] [phone] fax [phone]. CM contacted [facility] and Carlos stated they would accept patient when discharged just fax referral upon discharge. CM contacted [facility] regarding BSC and will fax order. Patient denied known discharge needs at this time. CM will continue to follow and will assist as needed with dc plans/needs. Food Service Driver: Laura Person DCPIA - Discharge Planning Initial Assessment Updated by [email or web address]: Laura Person on 08/20/19 10:34 pm * Is the patient Alert and Oriented? Yes * How many steps to enter\exit or inside your home? * PCP Teodoro York Jr * Pharmacy [facility] * Preadmission Environment Home with Family * ADLs Independent * Equipment None * List name and contact numbers for known caregivers / representatives who currently or will assist patient after discharge: Preston Stephens -[phone] * Verbal permission to speak to the caregivers and representatives has been obtained from the patient. Yes * Community resources currently utilized None * Additional services required to return to the preadmission environment? No * Can the patient safely return to the preadmission environment? Yes * Has this patient been hospitalized within the prior 30 days at any hospital? No Coverage Notice Reviewer: [email or web address] Georgi Reeves Notice Issued Date-Time: 08/22/2019 11:19 Notice Type: IM Discharge Notice Notice Delivered To: Patient Relationship to Patient: Self Vp Talent Management Name: Delivery Method: HAND - Hand Delivered Rosemary Days: Prior Verbal Notification: Recipient Understood Notice: Yes Recipient Signature: Yes Med Rec Note Co-signed by Attending: Coverage Notice Comment: IMM explained, signed, given, copy placed in MR Last DP export: 08/22/19 10:21 a Patient Name: ISABELLE STEPHENS Page [phone] at 1320 All edits/amendments must be made on the electronic document DICTATION DATE: 08/22/191318 SPRING FORMER: BARBARA 08/22/199 RPT#: [id number] DC DATE:08/22/19 STATUS: DIS IN [facility] [address] [place] [address] END OF REPORT
== END 2019-08-22 11:43 | disposition home health service (06) | DRG 470 ==
LOC: D.SDCHOLD 08-19 05:25 → D.M3 08-19 05:25 → D.SDCHOLD 08-19 07:00 → D.M3 08-19 10:02
PROVIDERS: Emergency Medicine; ADMIT Orthopaedic Surgery; ATTEND Orthopaedic Surgery
PROC: 0SRB0JZ Replacement of Left Hip Joint with Synthetic Substitute, Open Approach (ICD-10-PCS; principal; 2019-08-19 07:00)
DX: M16.11 Unilateral primary osteoarthritis, right hip (principal); D62 Acute posthemorrhagic anemia; Z68.41 Body mass index [BMI] 40.0-44.9, adult; N39.0 Urinary tract infection, site not specified; I10 Essential (primary) hypertension; G89.29 Other chronic pain; F41.8 Other specified anxiety disorders; E66.9 Obesity, unspecified